=== PATIENT | female | born 1935 | race American Indian/Alaskan Native ===

== ENCOUNTER 2017-10-31 | Observation (INO) | payer MEDICARE, OTHER ==
--- NOTE | 2017-10-31 00:29 | ED PDOC ---
Arrival/HPI - General Time Seen by Provider: 10/31/17 00:29 Historian: Patient, Spouse - History of Present Illness Narrative History of Present Illness (Text): 10/31/17 00:29 Frida Segura is a 82 year old female, whose past medical history includes HTN, Thoracic tumor, CAD, b/l lymphadema, presents to the emergency department complaining of left shoulder pain x 2 days. Patient stated shoulder pain has radiated to her left arm. Patient admits similar symptom in the past. Patient has had steroid injection in the shoulder. Patient noted DUNCAN. Patient is concern arm pain could be heart problems. Patient denies CP, SOB, abdominal pain, HANKINS, dizziness, or abnormal gait. Time/Duration: Other (2 days) Symptom Onset: Sudden Symptom Course: Worsening Context: Home Past Medical History - Provider Review Nursing Documentation Reviewed: Yes - Infectious Disease Hx of Infectious Diseases: None - Cardiac Hx Hypertension: Yes - Pulmonary Hx Respiratory Disorders: No - Neurological Hx Neurological Disorder: No - HEENT Hx Cataracts: Yes Hx Glaucoma: Yes - Renal Other/Comment: CKD - Endocrine/Metabolic Hx Endocrine Disorders: No - Hematological/Oncological Hx Blood Disorders: No - Integumentary Hx Dermatological Disorder: No - Musculoskeletal/Rheumatological Hx Arthritis: Yes Hx Degenerative Joint Disease: Yes Hx Falls: Yes Hx Osteoarthritis: Yes Hx Rheumatoid Arthritis: Yes Hx Unsteady Gait: Yes (+cane) Other/Comment: bao Achiles tendon tear - Gastrointestinal Hx Gastrointestinal Disorders: No - Genitourinary/Gynecological Hx Urinary Tract Infection: Yes - Psychiatric Hx Psychophysiologic Disorder: No Hx Substance Use: No - Surgical History Hx Tonsillectomy: Yes Other/Comment: Chest surgery - got a tumor removed. Carpal tunnel sx - Anesthesia Hx Anesthesia: Yes Family/Social History - Physician Review Nursing Documentation Reviewed: Yes Family/Social History: Other (noncontributory) Smoking Status: Former Smoker Hx Alcohol Use: Yes Hx Substance Use: No Allergies/Home Meds Allergies/Adverse Reactions: Allergies No Known Allergies Allergy (Verified 10/31/17 00:16) Home Medications: Home Meds Medication Instructions Recorded Confirmed Metoprolol Succinate [Toprol XL] 100 mg PO DAILY 10/31/17 10/31/17 Valsartan [Valsartan] 320 mg PO DAILY 05/19/18 05/19/18 Review of Systems - Review of Systems Constitutional: Normal. absent: Fatigue, Weight Change, Fevers Eyes: Normal ENT: Normal Respiratory: SOB (chronic sob, not worse). absent: Cough Cardiovascular: Normal. absent: Chest Pain, Palpitations, Edema, Calf Pain, Orthopnea, Syncope Gastrointestinal: Normal. absent: Abdominal Pain, Nausea, Vomiting Genitourinary Female: Normal Musculoskeletal: Other (shoudler and arm pain) Skin: Normal Neurological: Normal Endocrine: Normal Hemo/Lymphatic: Normal Psychiatric: Normal Physical Exam Vital Signs Temp Pulse Resp BP Pulse Ox 10/31/17 00:00 97.9 F 84 16 163/71 H 97 Temperature: Afebrile Blood Pressure: Normal Pulse: Regular Respiratory Rate: Normal Appearance: Positive for: Well-Appearing, Non-Toxic, Comfortable Pain Distress: None Mental Status: Positive for: Alert and Oriented X 3 - Systems Exam Head: Present: Atraumatic, Normocephalic Pupils: Present: PERRL Extroacular Muscles: Present: EOMI Conjunctiva: Present: Normal Mouth: Present: Moist Mucous Membranes Neck: Present: Normal Range of Motion, Trachea Midline. No: Meningeal Signs, MIDLINE TENDERNESS, Paraspinal Tenderness Respiratory/Chest: Present: Clear to Auscultation, Good Air Exchange. No: Respiratory Distress, Accessory Muscle Use, Wheezes, Decreased Breath Sounds, Tender to Palpation Cardiovascular: Present: Regular Rate and Rhythm, Normal S1, S2. No: Murmurs Abdomen: No: Tenderness, Distention, Peritoneal Signs Back: Present: Normal Inspection. No: CVA Tenderness Upper Extremity: Present: Normal Inspection, NORMAL PULSES, Neurovascularly Intact, Capillary Refill < 2s. No: Cyanosis, Edema, Normal ROM (due to left shoulder pain) Lower Extremity: Present: Normal Inspection, NORMAL PULSES, Normal ROM, Neurovascularly Intact, Capillary Refill < 2 s. No: Edema Neurological: Present: GCS=15, CN II-XII Intact, Speech Normal Skin: Present: Warm, Dry, Normal Color. No: Rashes Psychiatric: Present: Alert, Oriented x 3, Normal Insight, Normal Concentration Medical Decision Making ED Course and Treatment: 10/31/17 03:[address] Fulton regarding left arm pain x 2 days. Left arm pain could indicate cardiac origin. Serial Troponin was recommended by dr. Fulton. he recommended Dr. 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 Patient agreed with plan for observation Re-evaluation Time: 03:03 Reassessment Condition: Re-examined, Improving,but remains with symptoms - Lab Interpretations Lab Results: 10/31/17 01:30 10/31/17 01:30 Lab Results 10/31/17 01:30: Sodium 144, Potassium 3.7, Chloride 109 H, Carbon Dioxide 26, Anion Gap 13, BUN 14, Creatinine 0.8, Est GFR ( Amer) > 60, Est GFR (Non- Af Amer) > 60, Random Glucose 127 H, Calcium 9.4, Magnesium 2.0, Total Bilirubin 0.2, AST 17, ALT 41, Alkaline Phosphatase 56, Lactate Dehydrogenase 400, Total Creatine Kinase 39, Troponin I < 0.01, NT-Pro-B Natriuret Pep 148, Total Protein 6.7, Albumin 3.6, Globulin 3.1, Albumin/Globulin Ratio 1.2 10/31/17 01:30: PT 11.3, INR 0.99, APTT 29.5 10/31/17 01:30: WBC 6.2, RBC 3.94, Hgb 11.3 L, Hct 34.8 L, MCV 88.3, MCH 28.7, MCHC 32.5, RDW 17.6 H, Plt Count 198, MPV 10.2, Gran % 63.8, Lymph % (Auto) 20.8 L, Dixon % (Auto) 13.7 H, Eos % (Auto) 1.4 L, Baso % (Auto) 0.3, Gran # 3.96 , Lymph # (Auto) 1.3, Dixon # (Auto) 0.9 H, Eos # (Auto) 0.1, Baso # (Auto) 0.02 I have reviewed the lab results: Yes Interpretation: No clinic. lab abnormalty - RAD Interpretation Narrative RAD Interpretations (Text): 10/31/17 03:03 Chest x-rays: NAD Shoulder x-rays: moderate DJD. No Fx Radiology Orders: 10/31/17 00:42 CHEST PORTABLE [RAD] Stat 10/31/17 00:43 SHOULDER LEFT [RAD] Stat - EKG Interpretation Interpreted by ED Physician: Yes (NSR @ [address] changes) Type: 12 lead EKG Comparison: No previous EKG avail. - Medication Orders Current Medication Orders: Sodium Chloride (Sodium Chloride 0.9%) 1,000 mls @ 70 mls/hr IV .[id number] STA Stop: 10/31/17 17:13 Morphine Sulfate (Morphine) 2 mg IVP Q4 PRN PRN Reason: Pain, severe (8-10) Stop: 10/31/17 10:00 Ondansetron HCl (Zofran Inj) 4 mg IVP Q6H PRN PRN Reason: Nausea/Vomiting Stop: 10/31/17 10:00 Discontinued Medications Aspirin (Aspirin) 325 mg PO STAT STA Stop: 10/31/17 00:42 Last Admin: 10/31/17 01:00 Dose: Not Given Non-Admin Reason: Patient Refused Comments: pt states it makes her stomach bleed Ketorolac Tromethamine (Toradol) 15 mg IVP STAT STA Stop: 10/31/17 02:10 Last Admin: 10/31/17 02:19 Dose: 15 mg MAR Pain Assessment Document 10/31/17 02:19 AD (Rec: 10/31/17 02:20 AD [id number]) Pain Reassessment Is this a pain reassessment? No Presence of Pain Presence of Pain Yes Location Left, Right or Bilateral Left Pain Location Body Site Shoulder Arm Description Intensity of Pain at present 10 Pain Behavior Facial Grimacing IVP Administration Document 10/31/17 02:19 AD (Rec: 10/31/17 02:20 AD [id number]) Charges for Administration # of IVP Administrations 1 Morphine Sulfate (Morphine) 4 mg IVP STAT STA Stop: 10/31/17 02:50 Ondansetron HCl (Zofran Inj) 4 mg IVP STAT STA Stop: 10/31/17 02:50 Disposition/Present on Arrival - Present on Arrival Any Indicators Present on Arrival: No History of DVT/PE: No History of Uncontrolled Diabetes: No Urinary Catheter: No History Surgical Site Infection Following: None - Disposition Have Diagnosis and Disposition been Completed?: Yes Diagnosis: Arm pain, Chest pain Disposition: HOSPITALIZED Disposition Time: 03:05 Patient Plan: Observation Condition: STABLE Discharge Instructions (ExitCare): Chest Pain (ED) Referrals: Mark Fulton DO [Staff Provider] - Follow up with primary
[2017-10-31 02:03] LABS: BASO # 0.02 K/mm3 (0.0-2.0); BASO % 0.3 % (0.0-3.0); EOS # 0.1 (0.0-0.7); EOS % 1.4 % (1.5-5.0); GRAN # 3.96 (1.4-6.5); GRAN % 63.8 % (50.0-68.0); HEMOGLOBIN 11.3 g/dL (12.0-16.0); LYMPH # 1.3 (1.2-3.4); LYMPH % 20.8 % (22.0-35.0); MEAN CELL VOLUME 88.3 fl (80.0-105.0); MEAN CORPUSCULAR HEMOGLOBIN 28.7 pg (25.0-35.0); MEAN CORPUSCULAR HGB CONC 32.5 g/dl (31.0-37.0); MEAN PLATELET VOLUME 10.2 fl (7.0-11.0); MONO # 0.9 (0.1-0.6); MONO % 13.7 % (1.0-6.0); RBC 3.94 10^6/uL (3.5-6.1); RED CELL DISTRIBUTION WIDTH 17.6 % (11.5-14.5); WHITE BLOOD COUNT 6.2 10^3/ul (4.5-11.0)
[2017-10-31 02:07] LABS: INR 0.99 (0.93-1.08); PARTIAL THROMBOPLASTIN TIME 29.5 Seconds (25.1-36.5); PROTHROMBIN TIME 11.3 SECONDS (9.4-12.5)
[2017-10-31 02:30] LABS: ALB/GLOB RATIO 1.2 (1.1-1.8); ALBUMIN 3.6 g/dL (3.0-4.8); ALT/SGPT 41 U/L (7-56); AST/SGOT 17 U/L (14-36); BLOOD UREA NITROGEN 14 mg/dL (7-21); CALCIUM 9.4 mg/dL (8.4-10.5); GFR AFRICAN-AMERICAN > 60; GFR NON-AFRICAN AMERICAN > 60
[2017-10-31 02:40] LABS: B-TYPE NATRIURETIC PEPTIDE 148 pg/mL (0-450); TROPONIN I < 0.01 ng/mL
[2017-10-31] MEDS ORDERED: Morphine 4 mg/ml ISec IVP STA (02:49)
[2017-10-31] MEDS ORDERED: Sodium Chloride 0.9% 1,000 ML IV STA (02:56)
[2017-10-31] MEDS ORDERED: Morphine 4 mg/ml ISec IVP PRN (02:58)
[2017-10-31 03:27] VITALS: RESP 18
[2017-10-31 04:59] VITALS: O2SAT 98
[2017-10-31 07:00] VITALS: BMI 36.3
[2017-10-31 08:32] LABS: BLOOD UREA NITROGEN 14 mg/dL (7-21); CALCIUM 8.8 mg/dL (8.4-10.5); GFR AFRICAN-AMERICAN > 60; GFR NON-AFRICAN AMERICAN > 60
[2017-10-31 08:34] LABS: MEAN CELL VOLUME 88.4 fl (80.0-105.0); MEAN CORPUSCULAR HEMOGLOBIN 28.9 pg (25.0-35.0); MEAN CORPUSCULAR HGB CONC 32.7 g/dl (31.0-37.0); RBC 3.8 10^6/uL (3.5-6.1); RED CELL DISTRIBUTION WIDTH 17.7 % (11.5-14.5)
[2017-10-31 08:43] LABS: TROPONIN I < 0.01 ng/mL
[2017-10-31] MEDS ORDERED: Metoprolol Succinate 100 mg XL Tab PO SCH (10:00)
--- NOTE | 2017-10-31 10:20 | RAD ---
HISTORY: left arm pain COMPARISON: No radiographic findings to suggest acute or significant cardiovascular disease. FINDINGS: LUNGS: No active pulmonary disease. PLEURA: No significant pleural effusion identified, no pneumothorax apparent. CARDIOVASCULAR: Normal. OSSEOUS STRUCTURES: No significant abnormalities. VISUALIZED UPPER ABDOMEN: Normal. OTHER FINDINGS: None. IMPRESSION: No active disease. No significant interval change compared to the prior examination(s). Concordant results with the preliminary interpretation rendered by the emergency department physician procedure.
[2017-10-31 10:54] LABS: PH,URINE 5.5 (4.7-8.0); URINE BILIRUBIN NEGATIVE (NEGATIVE); URINE BLOOD TRACE-LYSED (NEGATIVE); URINE GLUCOSE (UA) NEGATIVE (NEGATIVE); URINE LEUKOCYTE ESTERASE LARGE Leu/uL (NEGATIVE); URINE PROTEIN NEGATIVE mg/dL (<30 mg/dL); URINE UROBILINOGEN 0.2 E.U./dL (<1 E.U./dL)
[2017-10-31 10:55] LABS: URINE APPEARANCE SLIGHT-CLOUDY (CLEAR)
[2017-10-31 11:07] LABS: URINE AMORPHOUS SEDIMENT SMALL; URINE BACTERIA TRACE (NEG); URINE EPITHELIAL CELLS MANY /hpf (0-5)
[2017-10-31 11:33] VITALS: BP 143/73; PULSE 92; TEMP 97.8
--- NOTE | 2017-10-31 15:01 | CON ---
DATE: 10/31/2017 CARDIOLOGY CONSULTATION The patient is a 82-year-old woman who presented with left arm pain. The patient has no previous cardiac history and is followed by a cone treater on the outside. She denies chest pain. The patient's past medical history includes hypertension, hypercholesterolemia and has a thoracic tumor treated by her doctors on the outside. She denies shortness of breath. No dizziness. No previous myocardial infarction. SOCIAL HISTORY Denies smoking. REVIEW OF SYSTEMS: The 14-point review of systems were reviewed in detail. No cardiac symptomatology is noted. PHYSICAL EXAMINATION: VITAL SIGNS: Blood pressure is 154/69, heart rate is in the 70s. NECK: Negative JVD. LUNGS: Without rales. HEART: Reveal S1, S2. EXTREMITIES: Without edema. DATA: EKG is unremarkable. Troponins are negative x2. IMPRESSION: 1. Left arm pain. 2. No angina. 3. No evidence for acute coronary syndrome. 4. Hypertension. 5. Hypercholesterolemia. 6. History of thoracic tumor. The patient does not want any cardiac intervention. She does not want any tests done. (I have my own cone treater) we will discontinue Telemetry today. No further cardiac workup is necessary. Tanner Walls MD
--- NOTE | 2017-10-31 15:20 | CARD ---
APPROVED REPORT EKG Measurement Heart [id number] <Conclusion> Normal sinus rhythm Possible Left atrial enlargement Left axis deviation Left ventricular hypertrophy Abnormal ECG
--- NOTE | 2017-10-31 16:54 | HP ---
DATE OF EXAM: 10/31/2017 HISTORY OF PRESENT ILLNESS: Frida came into the emergency room yesterday, presenting with left shoulder pain for 2 days, radiating to the left arm. She had similar symptoms in the past, for which she had a steroid injection. She noticed some dyspnea on exertion and a concern for some heart issues. She is an 82-year-old -[place] female with the history of hypertension, thoracic tumor, CAD, bilateral lymphedema, left neck and left shoulder pain, cataracts, glaucoma, chronic kidney disease, arthritis, degenerative joint disease, falls, osteoarthritis, rheumatoid arthritis, unsteady gait with a cane, bilateral Achilles tendon tears, urinary tract infection history. She had a chest surgery, got a tumor removed, carpal tunnel syndrome, tonsillectomy. FAMILY HISTORY: Hypertension in the family. SOCIAL HISTORY: Former smoker, still drinks alcohol, no substance abuse. ALLERGIES: NO KNOWN DRUG ALLERGIES. MEDICATIONS: Takes Toprol and losartan. REVIEW OF SYSTEMS: No acute fatigue, weight changes or fever. No change in visions or hearing. No sore throat. There is some shortness of breath but that is kind of common for her, she has always had it for years. No cough. No chest pain, palpitations, edema. No calf pain. No palpitations. No chest tightness, but there is left neck and left arm pain, which she has had before. The steroid shot works, I think it worn off, she says. No nausea, vomiting, constipation, diarrhea. No abdominal pain. No problems with urinary issues. Left neck and left shoulder pain. Skin for the most part is intact. No apparent ulcers or rashes, she states. Not nervous, not anxious. PHYSICAL EXAMINATION: VITAL SIGNS: She has 97.9 temperature, 84 pulse, 16 respiratory rate, 163/79 blood pressure, 97% O2 sat on room air. GENERAL: She is well appearing, comfortable at rest. No acute problems. Alert and oriented x3. HEENT: Head is atraumatic and normocephalic. Extraocular muscles are intact. Pupils equal and reactive to light and accommodation. Throat is moist. NECK: Not supple. Neck is tight on the left side, hard muscle and to the left shoulder, she has range of motion but just tenderness. LUNGS: Decreased breath sounds, but clear to auscultation bilaterally. HEART: Regular rate. Normal S1 and S2. EXTREMITIES: Legs have trace edema bilaterally. NEUROLOGIC: GCS is 15. Cranial nerves II-XII grossly intact. Alert and oriented x3. SKIN: What I could tell is no rashes or ulcers. LYMPH NODES: Thyroid midline. No palpable appreciable lymphadenopathy. LABORATORY DATA: She had tests done. She has a 144 sodium, potassium 3.7, BUN 14, creatinine 0.8. GFR is greater than 60. Sugar is 127, calcium is 9.4, magnesium 2. Total bili is 0.2, AST is 17, ALT is 41, alkaline phosphatase is 56_. Lactate dehydrogenase is 400. Total creatine kinase is 39. Troponin I is less than 0.01. BNP is 148. Total protein 6.7, albumin 3.6. INR is 0.99. She has a 6.2 white count, 11.3 hemoglobin, 34.8 hematocrit with 198 platelets. MEDICATIONS: She is currently on aspirin, losartan, morphine for pain, IV fluids, Toprol, Toradol, Zofran. ASSESSMENT AND PLAN: She is comfortable this morning. She is going to have troponins done again this morning. If they is normal and Dr. Walls states today she is okay, she could be discharged. Outpatient treatment with the Orthopedic doctor, gave the injection on neck. At this point, I do not think it is a cardiac issue, we are ruling that out. I think she is doing well. I will see what Dr. Walls has to say this morning. Awaiting for labs to come back this morning so she should be able to be discharged later on this morning, maybe closer to lunch. She will go back to her regular medications. Follow up with her doctor. The patient is admitted for left neck, left arm pain. Mark Fulton DO MTDD
--- NOTE | 2017-11-01 06:05 | DS ---
HISTORY OF PRESENT ILLNESS: She did very well with her left neck and left arm. Waiting for Dr. Walls to come in to give the blessing that she can be discharged to outpatient followup. She is having left neck and left shoulder pain. She can follow up for an outpatient injection of steroid with her Orthopedic doctor. Mark Fulton DO
== END 2017-10-31 12:55 | disposition home or self-care (01) ==
LOC: ED → ERH 02:59 → 2RSO 04:46
PROVIDERS: ADMIT Family Medicine; ATTEND Family Medicine
DX: M79.602 Pain in left arm (principal); E78.00 Pure hypercholesterolemia, unspecified; I12.9 Hypertensive chronic kidney disease with stage 1 through stage 4 chronic kidney disease, or unspecified chronic kidney disease; I25.10 Atherosclerotic heart disease of native coronary artery without angina pectoris; M06.9 Rheumatoid arthritis, unspecified; N18.9 Chronic kidney disease, unspecified; H40.9 Unspecified glaucoma; Z82.49 Family history of ischemic heart disease and other diseases of the circulatory system; Z87.440 Personal history of urinary (tract) infections; Z87.891 Personal history of nicotine dependence
CPT/HCPCS: 71045; 73030; 80053; 81001; 82550; 83615; 83735; 83880; 84484; 85025; 85027; 85610; 85730; 87086; 87181; 93005; 96374; 96375; 96376; 99285; G0378; J1885; J2270; J2405; J7040